=== PATIENT | female | born 1970 | race Native Hawaiian/Other Pacific Islander ===

== ENCOUNTER 2020-08-05 13:08 | Outpatient (CLI) | payer OTHER | END 2020-08-05 19:58 | disposition home or self-care (01) | LOC: LABW 13:08 | PROVIDERS: ATTEND Internal Medicine | DX: Z01.84 Encounter for antibody response examination (principal) | CPT/HCPCS: 36415; 86769 ==

== ENCOUNTER 2020-08-13 09:22 | Outpatient (CLI) | payer OTHER ==
[2020-08-13 10:01] LABS: POTASSIUM 3.5 mmol/L (3.6-5.2)
== END 2020-08-13 18:58 | disposition home or self-care (01) ==
LOC: LABW 09:22
PROVIDERS: ATTEND Nurse Practitioner
DX: R53.83 Other fatigue (principal); D64.9 Anemia, unspecified
CPT/HCPCS: 36415; 80069; 82607; 82728; 83540; 83550; 85652; 86038; 86140

== ENCOUNTER 2021-03-01 07:46 | Outpatient (CLI) | payer OTHER ==
[2021-03-01 08:34] LABS: PLATELET COUNT 304 K/uL (152-353)
[2021-03-01 08:39] LABS: POTASSIUM 3.5 mmol/L (3.6-5.2)
== END 2021-03-01 19:16 | disposition home or self-care (01) ==
LOC: LABW 07:46
PROVIDERS: ATTEND Nurse Practitioner
DX: Z00.00 Encounter for general adult medical examination without abnormal findings (principal)
CPT/HCPCS: 36415; 80053; 84439; 84443; 85027; 85652; 86038; 86140; 86430

== ENCOUNTER 2021-09-24 09:49 | Outpatient (CLI) | payer OTHER | END 2021-09-24 19:56 | disposition home or self-care (01) | LOC: RAD 09:49 | PROVIDERS: ATTEND Internal Medicine | DX: M54.50 Low back pain, unspecified (principal); M25.552 Pain in left hip ==

== ENCOUNTER 2021-11-12 09:47 | Outpatient (CLI) | payer OTHER | END 2021-11-12 20:52 | disposition home or self-care (01) | LOC: MRI 09:47 | PROVIDERS: ATTEND Internal Medicine | DX: M51.16 Intervertebral disc disorders with radiculopathy, lumbar region (principal) ==

== ENCOUNTER 2023-04-14 07:20 | Outpatient (CLI) | payer OTHER | END 2023-04-14 20:42 | disposition home or self-care (01) | LOC: LABW 07:20 | PROVIDERS: ATTEND Obstetrics & Gynecology | DX: N95.1 Menopausal and female climacteric states (principal) | CPT/HCPCS: 36415; 82670; 83002; 84144; 84403; 84443 ==